=== PATIENT | male | born 1975 | race Caucasian/White ===

== ENCOUNTER 2019-01-03 07:00 | Inpatient (IN) ==
[2019-01-03] MEDS ORDERED: KEFZOL 2 GM/D5W 2 GM/50 ML IVPB ONE (13:46)
[2019-01-03] MEDS ORDERED: LR 1,000 ML ONE (13:46)
[2019-01-03] MEDS ORDERED: DIPRIVAN 1% ONE (14:39)
[2019-01-03] MEDS ORDERED: XYLOCAINE-MPF 2% ONE (14:40)
[2019-01-03] MEDS ORDERED: SUFENTA ONE (14:45)
[2019-01-03] MEDS ORDERED: QUELICIN (DOSE) ONE (14:49)
[2019-01-03] MEDS ORDERED: VERSED ONE (15:30)
[2019-01-03] MEDS ORDERED: PRECEDEX ONE (15:57)
[2019-01-03] MEDS ORDERED: DECADRON ONE (16:38)
[2019-01-03] MEDS ORDERED: ZOFRAN ONE (16:38)
[2019-01-03] MEDS ORDERED: ZOFRAN IV PRN (17:08)
[2019-01-03] MEDS ORDERED: MORPHINE IV PRN (17:08)
[2019-01-03] MEDS ORDERED: SENOKOT PO PRN (17:08)
[2019-01-03] MEDS ORDERED: INSULIN ASPART 14 UNIT SQ PRN (19:53)
[2019-01-03] MEDS: GLUCOTROL XL PO SCH (21:07)
--- NOTE | 2019-01-03 21:33 | OPERATIVE NOTE ---
PROCEDURE DATE: 01/03/2019 PREOPERATIVE DIAGNOSIS: 1. Left grade 2 metatarsal osteomyelitis (chronic). 2. Left necrotic great toe. POSTOPERATIVE DIAGNOSES: 1. Left grade 2 metatarsal osteomyelitis (chronic). 2. Left necrotic great toe. PROCEDURES: 1. Left first ray amputation through the metatarsal. 2. Left application of wound VAC. SURGEON: Dr. Nuno Lux. ASSOCIATE PROGRAM MANAGER: LINDA Manning who was an integral part of the case helping with all aspects, helped increase our OR efficiency greatly. ANESTHESIA: General with LMA. TOURNIQUET TIME: Less than an hour. IMPLANTS: None. DRAINS / WOUND VAC: None. SPECIMENS: Great toe sent to pathology and cultures were sent. DISPOSITION: To PACU, hemodynamically stable. INDICATION FOR PROCEDURE: Mr. Horan is a 43-year-old male who been following in clinic for a while. It has been a while since I have seen him, though. He came in yesterday with a necrotic, sort of black colored great toe on the left side. I discussed with him about surgical intervention. He expressed understanding wished to proceed. DESCRIPTION OF PROCEDURE: Mr. Horan was identified in the preoperative holding area. The left foot was marked as correct surgical site. He was then wheeled to the operating room, placed supine on the operating table. All bony prominences well padded. He was induced under general anesthesia. LMA was placed. Left lower extremity was then prepped with Betadine solution, draped in normal sterile fashion. Surgical pause was performed. We identified the correct patient, correct side, and the correct procedure. Preop antibiotics were given. Esmarch was used as a tourniquet at the level of the calf. There was no exsanguination of the leg. I started with amputating the great toe through the MTP joint. We amputated it and then sent it to Pathology. I then made a longitudinal incision up the medial aspect of the metatarsal. A lot of metatarsal was already gone, but it came back proximally, took a sagittal saw and made a cut through that metatarsal, got back to good appearing bone I then curetted all the tissue around that area and I used a rongeur as well to get all the looking tissue out and we got back to nice healthy- appearing tissue. Infection looked like it did spread over the dorsal aspect of that 2nd toe. We tracked it through there and decompressed that whole area as well. After we had an extremely thorough debridement, and all the tissue actually looked really good, we then irrigated everything copiously with normal saline. I then closed a lot of the wound the deep layer with 2-0 Maxon, some of the superficial layer with 2-0 Maxon and then nylon on the skin. There was an area distally that was still open, packed a wound VAC sponge down in there and covered it and hooked it to 125 mmHg of suction. We had a good seal. Miguelangel wrap was then placed. He was then awoken from general anesthesia, moved to his own bed and taken to PACU in stable condition. PLAN: Postop he will be nonweightbearing with left lower extremity. He will be admitted. He will be on IV antibiotics as well. cc: Nuno Lux MD
[2019-01-04] MEDS: KEFZOL 1 GM/D5W 1 GM/50 ML IVPB IV SCH ×3 (00:35→16:27)
[2019-01-04] MEDS: LOVENOX SUBQ SCH (06:08)
--- NOTE | 2019-01-04 07:46 | PROGRESS NOTE ---
DATE: 01/04/2019 SUBJECTIVE DATA: Mr. Horan is lying comfortably in bed. He is not complaining of any pain this morning. OBJECTIVE DATA: Left lower extremity exam: His wound VAC is intact; it is secure to suction. There is no surrounding erythema. He does have some drainage to the wound VAC. Right lower extremity exam: That plantar wound does have some surrounding erythema, and it does have quite a bit of purulent drainage. The wound does probe to bone. This has been a chronic wound that he has had for quite some time. ASSESSMENT: Status post left first ray amputation with application of wound VAC. PLAN: We are to continue Mr. Horan on IV antibiotics over the weekend. We are going to continue the wound VAC over the weekend. Have consult with Karoline, the wound care nurse. We are going to take down the wound VAC Monday and re-dress everything. His cultures have not come back yet. So, hopefully by Monday those cultures will be back, and we can decide on correct antibiotic coverage. If it can be done oral, we are okay with doing that. However, most likely Mr. Horan is going to need several weeks of IV antibiotic therapy. This will depend on the results of the cultures. Dictated by DIVINA Figueroa for Nuno Lux MD cc: DIVINA Figueroa MD
[2019-01-04] MEDS: LANTUS INSULIN SUBQ SCH (09:13)
[2019-01-04] MEDS: PRINIVIL PO SCH (09:16)
[2019-01-04] MEDS: GLUCOTROL XL PO SCH ×2 (09:16→20:14)
[2019-01-04] MEDS: MAXIPIME 2 GM in NS 100 ML IV SCH ×2 (09:54→20:14)
[2019-01-04] MEDS: ZYVOX PO SCH ×2 (09:54→20:14)
--- NOTE | 2019-01-04 10:32 | INFECTIOUS DISEASE CONSULT REP ---
DATE: 01/04/2019 CONCLUSION: Patient is status post ray amputation of a gangrenous left great toe with osteomyelitis. The patient also has on the right foot a plantar ulcer which probes to bone. Therefore, there is osteomyelitis in the right foot as well. RECOMMENDATIONS: I have ordered a CBC and BMP. Pending those results, I have put the patient on a combination of Zyvox and cefepime. DISCUSSION: The patient had sudden onset over the past 2 days of erythema and swelling of his left great toe. He underwent surgery yesterday with re-amputation of the left great toe. The patient also in the past year and a half has had a right foot plantar ulcer which, according to Dr. Lux's PA, probes to bone. When I took a culture from the ulcer, it did also appear to me that the probe was going to bone. Therefore, the right foot has osteomyelitis. LABORATORY STUDIES: Unfortunately there are none presently, except for the culture from the left toe, which is pending. PAST MEDICAL HISTORY/REVIEW OF SYSTEMS: Eyes and ears: He denies trouble hearing or seeing. Neck: No stiffness. Respiratory: No cough or shortness of breath. Cardiac: No chest pain or palpitations. GI: No nausea, vomiting or diarrhea. Genitourinary: No dysuria or flank pain. Bones/joints/muscles: See present illness. Neurologic: The patient does not have seizures. He has diminished peripheral sensation in both feet. Integument: No rashes PREVIOUS HOSPITALIZATIONS AND OPERATIONS: Patient has had multiple admissions for debridement of bilateral plantar foot ulcers. MEDICAL DISEASES: Positive for diabetes mellitus and hypertension. INFECTIOUS DISEASE HISTORY: Positive for infected feet. Negative for pneumonia and UTI. FAMILY HISTORY: Positive for diabetes mellitus, hypertension and myocardial infarction. [place]IAL HISTORY[place] . The patient currently has been receiving Ancef, and in the past has had oral Keflex, and tolerated them both well. The patient does smoke cigarettes, but he does not drink alcoholic beverages or abuse drugs. He is disabled. ALLERGIES: He has an allergy to penicillin caused by a rash. The patient's drug allergies consist of aspirin, metformin Actos and penicillins. All of these were manifested by anaphylaxis. He also is allergic to Pulmicort manifested by hives. PHYSICAL EXAMINATION: Vital Signs: Temperature is 97.9 degrees, pulse 69, respirations 19, blood pressure 112/62. General: This is a somewhat ill-appearing, obese, young male. He is in no acute distress. Head/eyes/ears/nose/throat: He can hear my spoken words and see near objects. Does not have any white coating on his tongue. Neck: It does not hurt him when he moves his neck. Lungs: Clear to auscultation. Cardiovascular: Heart rate is regular. Abdomen: Soft and nontender. Neurologic: Patient is alert. He has decreased peripheral sensation in his feet. There is no tremor. Integument: No rash. Bones/joint/muscles: I removed the dressing from the right foot. There is a plantar ulcer which I obtained a culture, and it appeared that the ariel that I got the infection with went down to bone. The patient's left foot had a large dressing around it. The dressing is intact. Thank you for the consult. cc: MD Nuno Reyna MD
[2019-01-04] MEDS: OXY IR PO PRN (13:22)
[2019-01-04] MEDS ORDERED: BENADRYL PO PRN (14:41)
[2019-01-04 17:58] LABS: BASO# 0.08 X1000 (0.0-0.2); EOS# 0.28 X1000 (0.0-0.7); EOS% 3.3 % (0.0-10.0); HEMATOCRIT 44.5 % (42.0-52.0); HEMOGLOBIN 14.7 g/dL (14.0-18.0); IMM GRAN# 0.04 X1000 (0.0-0.04); IMM GRAN% 0.5 % (0.0-0.5); LYMPH# 2.64 X1000 (1.2-3.4); LYMPH% 31.6 % (20.5-51.1); MCH 28.2 PG (27-31); MCV 85.2 FL (81-99); MONO% 7.2 % (1.7-9.3); MPV 10.2 FL (7.4-10.4); NEUT# 4.72 X1000 (1.4-6.5); NEUT% 56.4 % (42.2-75.2); PLT 339 X1000 (130-400); RBC 5.22 XMIL (4.7-6.1); RDW 13.8 % (11.5-14.5); WBC 8.36 X1000 (4.8-10.8)
[2019-01-04 18:06] LABS: AGAP 7; BUN 18 mg/dL (8-22); CALCIUM 8.4 mg/dL (8.8-10.2); CHLORIDE 93 mmol/L (98-107); COSMO 273; CREATININE 0.9 mg/dL (0.7-1.2); ESTIMATED GFR > 60; GLUCOSE 209 mg/dL (70-104); POTASSIUM 3.9 mmol/L (3.5-5.1); SODIUM 132 mmol/L (136-145); TCO2 32 mmol/L (25-35)
[2019-01-05] MEDS: LOVENOX SUBQ SCH (05:13)
[2019-01-05] MEDS: GLUCOTROL XL PO SCH ×2 (09:08→20:34)
[2019-01-05] MEDS: ZYVOX PO SCH ×2 (09:08→20:34)
[2019-01-05] MEDS: MAXIPIME 2 GM in NS 100 ML IV SCH ×2 (09:08→20:34)
[2019-01-05] MEDS: PRINIVIL PO SCH (09:08)
[2019-01-05] MEDS: PERIDEX MT SCH ×2 (09:08→20:34)
[2019-01-05] MEDS: LANTUS INSULIN SUBQ SCH (09:20)
--- NOTE | 2019-01-05 11:33 | ORTHOPAEDICS PROGRESS NOTE ---
DATE: 01/05/2019 SUBJECTIVE: The patient is a pleasant 43-year-old male who is 2 days status post left 1st ray amputation through the metatarsal and application of wound VAC per Dr. Lux. He is currently resting comfortably. OBJECTIVE: On physical exam, patient's left lower extremity wound VAC is intact and is maintaining suction. His dressing is intact. His calf is soft. IMPRESSION: Status post left 1st ray amputation application of wound VAC. PLAN: At this point, the patient will continue with IV antibiotics per Dr. Flower. The plan is to take down the wound VAC and redress the wound on Monday. cc: MD Nuno Shaw MD
[2019-01-05] MEDS: OXY IR PO PRN (13:13)
[2019-01-06] MEDS: LOVENOX SUBQ SCH (05:09)
--- NOTE | 2019-01-06 08:04 | ORTHOPAEDICS PROGRESS NOTE ---
DATE: 01/06/2019 SUBJECTIVE: The patient is a pleasant, 43-year-old male who is 3 days status post left first ray amputation through the metatarsal with application of wound VAC per Dr. Lux. Patient is currently resting comfortably. He has no complaints. PHYSICAL EXAMINATION: He is afebrile. Left lower extremity, his wound VAC is in place. His dressing is intact as well. IMPRESSION: Status post left first ray amputation and application of wound VAC. PLAN: At this point, the patient will continue his IV antibiotics. The plan is to change his dressing and wound VAC tomorrow, and for repeat wound check. cc: MD Nuno Shaw MD
[2019-01-06] MEDS: ZYVOX PO SCH ×2 (09:30→21:02)
[2019-01-06] MEDS: PRINIVIL PO SCH (09:30)
[2019-01-06] MEDS: LANTUS INSULIN SUBQ SCH (09:30)
[2019-01-06] MEDS: PERIDEX MT SCH ×2 (09:31→21:03)
[2019-01-06] MEDS: GLUCOTROL XL PO SCH ×2 (09:31→21:02)
[2019-01-06] MEDS: MAXIPIME 2 GM in NS 100 ML IV SCH ×2 (09:31→21:03)
--- NOTE | 2019-01-06 14:36 | INFECTIOUS DISEASE PROGRESS NO ---
DATE: 01/06/2019 PRESENT ILLNESS: The patient is status post amputation of a gangrenous left great toe with osteomyelitis. A culture from the toe is growing methicillin-resistant Staph aureus. The patient on his right foot has a plantar ulcer which probes to bone. Therefore, by definition the patient has osteomyelitis of the right foot as well. MEDICATIONS: The patient is on a combination of cefepime and Zyvox. PHYSICAL EXAMINATION: Vital Signs: Temperature is 98.7 degrees, pulse 81, respirations 20, blood pressure 123/62. General: This is an obese, young male who is in no acute distress. Head/eyes/ears/nose/throat: He can hear my spoken words and see near objects. He does not have any white patches on his tongue. Neck: There is no pain when he moves his neck. Lungs: Clear to auscultation. Cardiovascular: Regular heart rate. Abdomen: Soft and nontender. Extremities: The patient's left foot has a VAC on it. The patient's right foot has a dressing on it. I removed the dressing and there is a plantar ulcer. I took another culture from the area and it did appear to go to the bone. Neurologic: Patient is alert. He can move his extremities. There is no tremor. LAB AND X-RAY STUDIES: No new radiographic study. CBC shows a white count of 8360, hemoglobin is 14.7 and platelet count is 339,000. Creatinine is 0.9. GFR is greater than 60. A culture taken from the patient's left foot which is the foot that had the left great toe amputated is growing methicillin-resistant Staph aureus. ASSESSMENT AND PLAN: The patient already is on Zyvox which should have good activity against methicillin-resistant Staph aureus. I have taken another culture from the patient's right foot. The 1st one I took I think I mislabeled as saying it was the left foot but in fact, I think it was actually the right foot, but in the computer it is entered as coming from the left foot so I thought it would be best to take a culture from the right foot and label it as such. I am going to discontinue cefepime pending the culture from the right foot. I have ordered an x-ray of the right foot also. COMORBIDITIES: He is a diabetic and he is morbidly obese. cc: MD Nuno eRyna MD
--- NOTE | 2019-01-06 15:06 | Diag Imaging Result Doc PS360 ---
EXAM: FOOT 2 VIEWS RIGHT HISTORY: osteomyelitis TECHNIQUE: Right foot, two views COMPARISON: 01/19/2018 FINDINGS: Worsening erosions to the mid and distal first metatarsal and proximal phalanx of the great toe. There are also now erosions with a pathologic fracture involving the distal second metatarsal. Long-standing deformity at the third and fourth metatarsal phalangeal joints. Soft tissue ulcer beneath the distal first and second metatarsals. IMPRESSION: Osteomyelitis involving the first and second metatarsals and proximal great toe. Electronically signed by Jurgen Valenzuela 01/06/2019 3:04 PM
[2019-01-06] MEDS: OXY IR PO PRN (21:03)
[2019-01-07] MEDS: LOVENOX SUBQ SCH (06:00)
[2019-01-07 07:43] VITALS: BP 110/60
--- NOTE | 2019-01-07 08:19 | ORTHOPAEDICS PROGRESS NOTE ---
DATE: 01/07/2019 SUBJECTIVE: Mr. Horan is lying in bed this morning. Overall feeling okay. Not really complaining of any pain. OBJECTIVE: On left lower extremity exam, his dressing is clean, dry, and intact. Wound VAC is intact and to 125 mm suction. There is not much drainage in the canister at all. ASSESSMENT: Status post left first ray amputation. PLAN: Mr. Horan is growing out MRSA, and Dr. Flower has recommended Zyvox for him. I will talk with Dr. Flower a little bit later this morning, and will discuss about getting IV access set up for Mr. Horan. We are also going to change his wound VAC today with Karoline, our wound nurse, and will get everything set up for wound VAC dressing changes if need be. He is desiring to be discharged as soon as possible, so will try to get everything done today and get everything set up for outpatient. cc: Nuno Lux MD
--- NOTE | 2019-01-07 09:57 | INFECTIOUS DISEASE PROGRESS NO ---
DATE: 01/07/2019 PRESENT ILLNESS: The patient is status post ray amputation of the gangrenous left great toe with methicillin-resistant Staph aureus osteomyelitis. The patient on the right foot has a plantar ulcer which probes to bone and, therefore, the right foot has osteomyelitis as well. The type of osteomyelitis is chronic because the patient has had that ulcer for a long time and has refused any type of surgery on his right foot, which would be necessary to clear the infection. MEDICATIONS: The patient is on a combination of cefepime and Zyvox. PHYSICAL EXAMINATION: Vital Signs: Temperature is 98.3 degrees, pulse 71, respirations 18, blood pressure 110/60. General: This is an obese, young male. He is in no acute distress. HEENT: He can hear my spoken words and see near objects. He does not have any white coating on his tongue. There is no drainage from the ears or nose. Lungs: Clear to auscultation. Cardiovascular: Heart rate is regular. Abdomen: Soft and nontender. Extremities: The patient's left foot has a VAC in place. The foot itself is not erythematous. The patient's right foot has a plantar ulcer which extends to bone. The right foot is swollen also. Neurologic: Patient is alert. He can move his arms and legs. There is no tremor. LAB AND X-RAY: There are no new laboratory studies other than a glucose of 160. There is no new radiographic study on either foot. Patient's culture from the left foot grew methicillin-resistant Staph aureus and it also grew Staph epidermidis. As regarding the patient's left foot osteomyelitis, this was removed at surgery by ray amputation. PLAN: My plan is to treat the patient with doxycycline for 2 weeks in case there is any residual infection in the left foot. I have taken a culture from the right foot and we will see what is growing. The patient is to come back to my office in 2 weeks. At that time we will see how his left foot is doing and also if he wants to proceed with surgery on his right foot. I discussed with the patient and told him that he does have bone infection in the right foot, which we call osteomyelitis, and because he has had it for 3 years that would be chronic osteomyelitis. I further told him that to clear the infection in that foot, he would need to have surgery done by Dr. Lux to remove as best he could the infected bone or bones. The patient in the past has refused to have any surgery on that right foot. I am sending him home on doxycycline, as mentioned above, and when he comes back in he said he may change his mind and he will think about having surgery on the right foot. I told him that giving him IV antibiotics for a period of 6 weeks, I did not think would cure the right foot because he has a chronic osteomyelitis in that foot and to clear that he would need both surgery to remove the involved bone or bones as much as possible and combine that with IV antibiotics. The patient's comorbidities include diabetes mellitus and morbid obesity. cc: MD Nuno Reyna MD
--- NOTE | 2019-01-07 14:14 | DISCHARGE SUMMARY ---
ADMISSION DATE: 01/03/2019 DISCHARGE DATE: 01/07/2019 REASON FOR ADMISSION: 1. Left metatarsal chronic osteomyelitis. 2. Left necrotic great toe. 3. Uncontrolled diabetes mellitus with peripheral neuropathy. DISCHARGE DIAGNOSES: 1. Left metatarsal chronic osteomyelitis. 2. Left necrotic great toe. 3. Uncontrolled diabetes mellitus with peripheral neuropathy. PROCEDURES: On 01/03/2019, Dr. Lux performed a left first ray amputation through the metatarsal with application of wound VAC. HOSPITAL COURSE: Mr. Horan is a 43-year-old male who Dr. Lux has been following in clinic for almost 3 years. Unfortunately, it had been quite a while since Mr. Horan had been in to see us however. He has had chronic osteo of the metatarsals bilaterally. He came in and saw Dr. Lux in the office with a necrotic left great toe. At that time, it was discussed about surgical intervention. Dr. Lux had discussed with him previous transmetatarsal amputations before, and the patient has not wanted to do that. However, at that time he was ready for an amputation of the left great toe. He was taken to the operating room where satisfactory anesthesia was obtained. He tolerated the procedure well and was transferred to the recovery room. After satisfactory recovery, he was transferred to [address] [place] [address]. The cultures were taken at the time of surgery, and Dr. Flower was consulted. Dr. Flower started him on Zyvox intravenously. Cultures grew back which showed Staphylococcus aureus and Staphylococcus epidermidis. The patient has since been transitioned to doxycycline to take orally at home. His current laboratory data shows his white count is 8.36, hemoglobin and hematocrit 14.7, 44.5, and platelet count 339,000. His BUN and creatinine is 18 and 0.9. Discharge vital signs show temperature is 98.3 degrees, pulse 71, respirations 18, and blood pressure 110/60. He is 95% on room air. Mr. Horan states he is ready for discharge home. There was a wound VAC applied at the time of surgery. That was changed this morning. There were some chronic discoloration to the foot, but there was no surrounding erythema. He will continue to need the wound VAC. Karoline the wound care nurse has been into see him, and reapplied his wound VAC. DISCHARGE MEDICATIONS: 1. Glipizide 5 mg p.o. b.i.d. 2. NovoLog 14 units subcu as needed. 3. Insulin 60 units subcu daily. 4. Prinivil 5 mg p.o. daily. 5. Doxycycline 100 mg every 12 hours x15 days for now. FOLLOW UP: He will follow up with Dr. Flower as an outpatient. DISCHARGE DISPOSITION: Mr. Horan is going to be discharged home with home health. They will be responsible for changing his wound VAC. We are going to continue wound VAC at home. We will have him follow up with Dr. Lux in 1 week. We have discussed further worsening of symptoms. We have also discussed the continued need for a transmetatarsal amputation. Mr. Horan still wants to avoid that as long as possible. We are also treating his right side. There is a large open wound on this side, and the MRI does show chronic osteomyelitis changes to that foot as well. We will continue to watch both of these. We will just do local wound care on that right side. He is also going to follow up with Dr. Flower. He will continue the doxycycline likely for 6 to 8 weeks. We will have him call with any changes. Dictated by DIVINA Figueroa for Nuno Lux MD cc: DIVINA Figueroa MD
== END 2019-01-07 10:23 | disposition home or self-care (01) | DRG 240 ==
LOC: EDSTATUS 07:00 → SURHOLD 13:07 → 4N 17:45
PROVIDERS: ADMIT Orthopaedic Surgery; ATTEND Orthopaedic Surgery
CPT/HCPCS: 73620; 80048; 82948; 85025; 87070; 87075; 87077; 87186; 87205; 88305; 94761; 94799; 97116; 97162; 97530; A9270; J0330; J0690; J0692; J1100; J1650; J1815; J2250; J2270; J2405; J7120; XXXXX

== ENCOUNTER 2019-02-16 10:53 | Inpatient (IN) ==
[2019-02-16] MEDS ORDERED: CLINDAMYCIN 600 MG/NS 600 MG/50 ML IVPB IV ONE (11:14)
[2019-02-16] MEDS ORDERED: ZOFRAN IV ONE (11:20)
[2019-02-16] MEDS ORDERED: MORPHINE IV ONE (11:20)
--- NOTE | 2019-02-16 11:48 | Diag Imaging Result Doc PS360 ---
EXAM: FOOT COMPLETE RIGHT INDICATION: right foot cellulitis, foot ulcer TECHNIQUE: 3 views COMPARISON: 01/06/2019 FINDINGS: There is a stable ulceration at the plantar aspect of the forefoot. There is extensive soft tissue edema at the dorsum of the foot that has worsened during the interval and there has been development of subcutaneous gas at the dorsum of foot since the previous study indicating worsening cellulitis. There is extensive bony erosion involving the first and second metatarsals with pathologic fracture that was also seen on the previous study. There is adjacent new bone formation around the first and second metatarsal that has increased during the interval, which suggests subacute osteomyelitis. There are stable long-standing deformities involving the third and fourth metatarsophalangeal joints. IMPRESSION: 1.Worsening cellulitis with development of soft tissue gas at the dorsum of the foot. 2.Extensive erosion involving the first and second metatarsal with periosteal new bone formation that is increasing during the interval indicating subacute osteomyelitis. Electronically signed by David Lerma 02/16/2019 11:46 AM
[2019-02-16 11:59] LABS: BASO# 0.04 X1000 (0.0-0.2); BASO% 0.3 % (0.0-0.8); EOS# 0.06 X1000 (0.0-0.7); EOS% 0.4 % (0.0-10.0); HEMATOCRIT 47.1 % (42.0-52.0); HEMOGLOBIN 16.1 g/dL (14.0-18.0); IMM GRAN# 0.05 X1000 (0.0-0.04); IMM GRAN% 0.4 % (0.0-0.5); LYMPH# 1.36 X1000 (1.2-3.4); LYMPH% 9.6 % (20.5-51.1); MCH 29.4 PG (27-31); MCHC 34.2 g/dL (33-37); MCV 85.9 FL (81-99); MONO# 1.14 X1000 (0.11-0.59); MPV 11.8 FL (7.4-10.4); NEUT# 11.52 X1000 (1.4-6.5); NEUT% 81.3 % (42.2-75.2); PLT 193 X1000 (130-400); RBC 5.48 XMIL (4.7-6.1); RDW 15.5 % (11.5-14.5); WBC 14.17 X1000 (4.8-10.8)
[2019-02-16 12:25] LABS: AGAP 12; ALB/GLOB RATIO 0.7; ALBUMIN 3.5 g/dL (3.5-5.0); ALKALINE PHOSPHATASE 142 U/L (32-122); BUN 11 mg/dL (8-22); CALCIUM 9.6 mg/dL (8.8-10.2); CHLORIDE 91 mmol/L (98-107); COSMO 272; ESTIMATED GFR > 60; GLUCOSE 371 mg/dL (70-104); GOT 18 U/L (10-34); GPT 10 U/L (10-44); POTASSIUM 5.1 mmol/L (3.5-5.1); SODIUM 128 mmol/L (136-145); TCO2 25 mmol/L (25-35); TOTAL BILIRUBIN 0.74 mg/dL (0.20-1.00); TOTAL PROTEIN 8.3 g/dL (6.3-8.3)
[2019-02-16] MEDS ORDERED: NS 500 ML IV ONE (12:37)
--- NOTE | 2019-02-16 12:45 | PROVIDER DOCUMENTATION ---
This chart was entered by Roxanne Cuevas Scribe, acting as scribe for Darrius Cooley CRNP. HPI-Musculoskeletal Pain/Inj - GENERAL Chief Complaint: Extremity Pain Stated Complaint: RT FOOT SWOLLEN,DIABETIC Time Seen by Provider: 02/16/19 10:58 Source: patient - HX OF PRESENT ILLNESS-MUSKULOSKELTAL Nature of Presenting Problem: Patient is a 43 y/o male with history of diabetes presents to the ED with foot ulcers and increased swelling to the right second through fourth toes, most notably the fourth toe which also has an ulcer on the plantar surface where the states a blister ruptured last night. Hx of osteomyelitis and diabetic ulcer to right foot "for several years", pt states swelling increased last night and reports a subjective fever last night as well. Reports recent left foot amputation performed by Dr Lux. He states he has been seen by Dr. Elmer Flower with infectious disease for the ulcer on his right foot and completed a course of abx 1-2 months ago. He denies any other symptoms and is non-toxic in appearance. Quality of Pain: reports: none, other (chronic neuropathy) Onset/Duration: gradual Timing: still present Any recent injury?: No Locality of Occurance: Home Similar Symptoms Previously?: Yes Recently seen or treated by another doctor?: Yes - LOWER EXTREMITY PAIN/INJURY Lower Extremities Pain: 4th toe: right Context / Method of Injury: reports: other (foot ulcer) Review of Systems - Adult - REVIEW OF SYSTEMS - ADULT Constitutional: reports: fever. denies: weight gain, weight loss Eyes: reports: no symptoms reported Ears, Nose, Mouth & Throat: reports: no symptoms reported Cardiovascular: reports: no symptoms reported Respiratory: reports: no symptoms reported Gastrointestinal: denies: diarrhea, nausea, vomiting Genitourinary: reports: no symptoms reported Musculoskeletal: reports: other (right fourth toe swelling and discoloration). denies: back pain, muscle weakness Integumentary: reports: no symptoms reported Neurological: reports: no symptoms reported Psychiatric: reports: no symptoms reported Endocrine: reports: no symptoms reported Hematologic/Lymphatic: reports: no symptoms reported Allergic/Immunologic: reports: no symptoms reported All Other Systems: Reviewed and Negative Past History - Adult - PAST MEDICAL HISTORY-ADULT Review of Records: reports: Old Records Reviewed, Nursing Assessment Review, Medications Reviewed Major Childhood Illnesses: reports: denies history Respiratory: reports: asthma Endocrine/Immune: reports: Diabetes Other Conditions: reports: MRSA (Left foot) - PRIOR SURGERIES/PROCEDURES Surgical/Procedure History: reports: other - PRIOR HOSPITALIZATIONS Prior Hospitalizations: reports: none - IMMUNIZATION STATUS Childhood Immunizations: See Nurse Assessment Flu Vaccine: See Nurse Assessment - FAMILY HISTORY Family History: reviewed, not pertinent - SOCIAL HISTORY Smoking: cigarettes Provider spent 3-5 mins advising pt. on dangers of tobacco.: Discussed manners to quit use, and f/u contacts for add'l counseling. Substance Use: alcohol Living Situation: family Physical Exam-Injury Related - Physical Exam-Injury Related Initial Vital Signs Reviewed: Yes General Appearance: alert, no apparent distress, obese. negative: lethargic, slow to respond Eyes: pink conjunctivae Head, Ears, Nose, Mouth & Throat: normocephalic/atraumatic, moist mucous membranes Neck: full range of motion, supple, normal inspection Respiratory: chest non-tender, lungs clear, normal breath sounds, no pleuratic chest pain, no respiratory distress, no accessory muscle use. negative: rales, rhonchi, wheezing Cardiovascular: normal peripheral pulses, regular rate, rhythm, no gallop, no murmur Peripheral Pulses: dorsalis-pedis (R): 3+ Abdominal Exam: normal bowel sounds, non tender, soft Extremity: erythema (right foot, particularly the right fourth toe), swelling (right toes). negative: pulse deficit Integumentary: warm/dry, other (erythema right foot more in the right fourth toe). negative: diaphoresis, jaundice, mottled, pallor Neurologic: grossly normal Psych/Mental Status: normal mood/affect, normal thought content, normal thought process, oriented x 3 - [place] Coma Score Best Eye Response ([place]): (4) open spontaneously Best Verbal Response ([place]): (5) oriented Best Motor Response ([place]): (6) obeys commands Progress - PLAN OF CARE/RESULTS Progress/Plan/Lab Results: Vital Signs - 8 hr 02/16/19 11:00 Temperature 97.9 F Pulse Rate 112 H Respiratory Rate 20 Blood Pressure 164/72 O2 Sat by Pulse Oximetry 96 Laboratory Results - last 24 hr 02/16/19 02/16/19 02/16/19 11:35 11:35 11:35 WBC 14.17 H RBC 5.48 Hgb 16.1 Hct 47.1 MCV 85.9 MCH 29.4 MCHC 34.2 RDW Std Deviation 15.5 H Plt Count 193 MPV 11.8 H Immature Gran % (Auto) 0.4 Neut % (Auto) 81.3 H Lymph % (Auto) 9.6 L [place] % (Auto) 8.0 Eos % (Auto) 0.4 Baso % (Auto) 0.3 Immature Gran # (Auto) 0.05 H Neut # (Auto) 11.52 H Lymph # (Auto) 1.36 [place] # (Auto) 1.14 H Eos # (Auto) 0.06 Baso # (Auto) 0.04 Sodium 128 L Potassium 5.1 Chloride 91 L Carbon Dioxide 25 Anion Gap 12 BUN 11 Creatinine 1.0 Estimated GFR/1.73 m2 > 60 BUN/Creatinine Ratio 11 Glucose 371 H Calculated Osmolality 272 Calcium 9.6 Total Bilirubin 0.74 AST 18 ALT 10 Alkaline Phosphatase 142 H Total Protein 8.3 Albumin 3.5 Globulin 4.8 Albumin/Globulin Ratio 0.7 Plasma Lactate 1.6 Orders Category Date Time Status FOOT COMPLETE RIGHT [RAD] Stat Exams 02/16/19 11:14 Completed BLOOD CULTURE [BLDCUL] Stat Lab 02/16/19 11:40 Received CBC WITH DIFF [HEME] Stat Lab 02/16/19 11:35 Completed COMPREHENSIVE METABOLIC PANEL [CHEM] Stat Lab 02/16/19 11:35 Completed LACTATE, PLASMA [CHEM] Stat Lab 02/16/19 11:35 Completed WOUND CULTURE INC GRAM STAIN [RM] Routine Lab 02/16/19 12:40 Ordered 0.9% Sodium Chloride Inj [Ns] 500 ml Med 02/16/19 12:37 Active IV 999 mls/hr Clindamycin 600 mg/Ns Med 02/16/19 11:14 Discontinued 600 mg in 50 ml IV NOW Morphine Med 02/16/19 11:20 Discontinued 4 mg IV NOW ONE Ondansetron [Zofran] Med 02/16/19 11:20 Discontinued 4 mg IV NOW ONE 1223- Admitting HPS paged. Pt in agreement with admission plan. Result Diagrams: 02/16/19 11:35 02/16/19 11:35 - XRAY 1 XRAY: Right XRAY Study: Foot Impression: Abnormal (EXAM: FOOT COMPLETE RIGHT INDICATION: right foot cellulitis, foot ulcer TECHNIQUE: 3 views COMPARISON: 01/06/2019 FINDINGS: There is a stable ulceration at the plantar aspect of the forefoot. There is extensive soft tissue edema at the dorsum of the foot that has worsened during the interval and there has been development of subcutaneous gas at the dorsum of foot since the previous study indicating worsening cellulitis. There is extensive bony erosion involving the first and second metatarsals with pathologic fracture that was also seen on the previous study. There is adjacent new bone formation around the first and second metatarsal that has increased during the interval, which suggests subacute osteomyelitis. There are stable long-standing deformities involving the third and fourth metatarsophalangeal joints. IMPRESSION: 1.Worsening cellulitis with development of soft tissue gas at the dorsum of the foot. 2.Extensive erosion involving the first and second metatarsal with periosteal new bone formation that is increasing during the interval indicating subacute osteomyelitis. Electronically signed by David Lerma 02/16/2019 11:46 AM) - CONSULTS/PCP/HOSPITALIST Notification #1 *Consult/PCP/Hospitalist*: SUSAN Devi [employer]ISSIONING ENGINEER Time Discussed: 12:44 Reason/Comments: admission- osteomyelitis/cellulitis, right foot Consult Disposition: Will see in ED, Admit (to Dr. Jensen) Departure - Departure Date of Disposition Decision: 02/16/19 Time of Disposition Decision: 12:45 DIAGNOSIS: Hyponatremia Cellulitis Qualifiers: Site of cellulitis: extremity Site of cellulitis of extremity: lower extremity Laterality: right Qualified Code(s): L03.115 - Cellulitis of right lower limb Osteomyelitis Qualifiers: Osteomyelitis type: unspecified type Osteomyelitis location: foot Laterality: right Qualified Code(s): M86.9 - Osteomyelitis, unspecified Disposition: ADMITTED INPATIENT 09 Certified Medical Emergency: Emergent Condition: Stable Referrals and Follow-Ups: None,PCP [Primary Care Provider] - - Critical Care Note This patient required my direct & personal management of CC.: No Attestation - Physician/ EDITA Attestation Patient care was provided by Advanced Practice Provider:: Yes Advanced Practice Provider:: Darrius Cooley Advanced Practice Provider documentation review:: The Mid-level provider documentation, treatment plan and medical decision making was reviewed by the physician who agrees with all treatment and medical decision making by the MLP. The physician spent face to face time with patient:: No Advanced Practice Provider documentation review:: Supervising physician onsite and consulted in the evaluation and care of this patient. The physician did not have a face to face encounter with the patient. This chart was documented by the indicated scribe, (Roxanne Cuevas, Nilam) and accurately reflects the services I performed and decisions made by , Darrius Cooley CRNP, as attested by the provider's signature.
[2019-02-16] MEDS ORDERED: ZOFRAN IV PRN (12:56)
[2019-02-16] MEDS ORDERED: NS 1,000 ML IV SCH (13:00)
[2019-02-16 13:08] LABS: INR 1.09
[2019-02-16 13:09] LABS: PTT 34.5 Seconds (22.3-41.8)
--- NOTE | 2019-02-16 13:18 | Diag Imaging Result Doc PS360 ---
EXAM: CHEST-1 VIEW INDICATION: POSSIBLE SEPSIS TECHNIQUE: One view COMPARISON: 12/12/2014 FINDINGS: The lungs are grossly clear. There is no discrete pleural fluid collection or pneumothorax. The cardiomediastinal silhouette and central vasculature are grossly unremarkable. IMPRESSION: No evidence of acute pathology by plain radiograph. Electronically signed by David Lerma 02/16/2019 1:16 PM
[2019-02-16 14:01] LABS: HEMOGLOBIN A1C 8.5 % (4.8-6.0)
--- NOTE | 2019-02-16 14:16 | HISTORY AND PHYSICAL ---
HISTORY OF PRESENT ILLNESS: This is a 43-year-old white male who has a past medical history of diabetes mellitus type 2, peripheral neuropathy, and diabetic foot ulcers. The only surgery he has had is his left large toe was amputated and he has had foot ulcer debridement. Apparently he has been known he has had osteomyelitis of the right foot as well according to old records, but his right foot has been swelling and then he had a place open up and drain near his 5th toe. He has an open ulcer as well on the dorsum of his foot around the metatarsals midfoot. The whole foot is swollen. Does not have much feeling but still it is uncomfortable by his report. It apparently opened up and drained yesterday, did not want to come to the emergency room, came today. He is followed by Dr. Lux. He is followed by Dr. Flower in the past. His primary care physician is DIVINA Brandt. He does not report any fever or chills, or any other constitutional symptoms. His sugars, he is not sure what they have been, but they look like they have been running high. REVIEW OF SYSTEMS: General: No report of fever or chills. No weight gain or loss. HEENT: No change in visual or hearing acuity reported. No neck pain or cervical adenopathy. Respiratory: No upper airway congestion or pleuritic pain or shortness of breath, orthopnea, paroxysmal nocturnal dyspnea. No swelling that he has noted and unusual swelling in his lower extremities. Cardiovascular: No chest pain or tachy or tachy palpitations. Gastrointestinal/genitourinary: No gross hematuria or dysuria. No change in urinary or bowel habits. Endocrinologic/hematologic: No significant history other than diabetes. Musculoskeletal/Neurologic: No new focal complaints. PHYSICAL EXAMINATION: VITAL SIGNS: Temperature 97.9 degrees, pulse 112, respirations 20, blood pressure 164/72. HEENT: Pupils are equal and round. LUNGS: Clear in all lung ernst. CARDIOVASCULAR: Regular rhythm and rate without murmur or S3. ABDOMEN: Soft. SKIN: Warm and dry. GENERAL: Weight 285 pounds. EXTREMITIES: Right foot, entire foot with soft tissue swelling, open ulcer on the metatarsal of his foot and a draining ulcer near the 5th toe. There is mild discoloration of the left foot where he had a large toe amputation, seems to be healing well. LABORATORY DATA: White count 98638, hematocrit 47, platelet count 193,000. Sodium 128, potassium 5.1, chloride 91, BUN 11, creatinine 1.0, blood sugar 371, albumin 3.5. Protime is 15, INR 1.09, PTT is 34. IMAGING: Chest x-ray: No evidence of acute pathology by plain radiograph. Foot x-ray: Worsening cellulitis and development of soft tissue gas in the dorsum of the foot, extensive erosion involving the 1st and 2nd metatarsal, periosteal bone formation has increased during the interval indicating subacute osteomyelitis. ASSESSMENT AND PLAN: 1. Osteomyelitis infection of the foot. Suspect osteomyelitis and Dr. Lux has seen before. We will get Dr. Flower involved. He is allergic to penicillin so I will put him back on cefepime and Zyvox to cover for multi organism. We will try and elevate that foot. 2. Diabetes mellitus type 2. His blood sugars I think have been probably under poor control. His sugar was 371. We will check a hemoglobin A1c. We will put him on a sliding scale and check pattern sugars. Put him on a diabetic diet. He is on glipizide 5 mg b.i.d. and he is on Humalog which he takes 30 units at night. We will put him on the glipizide and I think we will put him on 10 mg b.i.d. glipizide and will put him on sliding scale. Probably will need to start some Lantus, but we will see how he does on this glipizide. 3. Hypertension. Continue lisinopril 5 mg a day. 4. Obesity. 5. Allergies. He is allergic aspirin, metformin, pioglitazone, penicillins, budesonide. Aware. cc: Caden Jensen MD
[2019-02-16 14:17] LABS: URINE SOURCE CLEAN CATCH
[2019-02-16 14:27] LABS: BILIRUBIN URINE NEGATIVE (NEGATIVE); BLOOD URINE MODERATE (NEGATIVE); COLOR YELLOW; GLUCOSE URINE >1000 mg/dL (NEGATIVE); KETONE URINE 40 mg/dL (NEGATIVE); LEUKOCYTES URINE NEGATIVE (NEGATIVE); NITRITE URINE NEGATIVE (NEGATIVE); PROTEIN URINE 70 mg/dL (NEGATIVE); SP GRAVITY URINE 1.024; TURBIDITY URINE CLEAR (CLEAR); UR EPITHELIAL CELLS <10 /HPF (<10); URINE BACTERIA NEGATIVE /HPF; URINE RBC <10 /HPF (<10); URINE WBC <10 /HPF (<10); UROBILINOGEN URINE NORMAL (NORMAL)
[2019-02-16] MEDS: ZYVOX 600 MG/D5W 600 MG/300 ML IVPB IV SCH (15:03)
[2019-02-16] MEDS: NS 1,000 ML IV SCH (15:03)
[2019-02-16] MEDS: LOVENOX SUBQ SCH (15:06)
[2019-02-16] MEDS: NORCO-7.5 PO PRN (15:06)
[2019-02-16] MEDS: ALBUTEROL NEB INH PRN ×2 (15:58→20:05)
[2019-02-16] MEDS: MAXIPIME 2 GM in NS 100 ML IV SCH (17:24)
[2019-02-16] MEDS: HUMULIN R SUBQ SCH ×2 (17:25→21:51)
[2019-02-16] MEDS ORDERED: INSULIN LISPRO 30 UNIT SQ SCH (21:00)
[2019-02-16] MEDS ORDERED: GLUCOTROL XL PO SCH (21:00)
[2019-02-16] MEDS: GLUCOTROL PO SCH (21:50)
[2019-02-16] MEDS: HUMULIN 70/30 SUBQ SCH (21:51)
[2019-02-17] MEDS: TYLENOL PO PRN ×2 (01:52→22:56)
[2019-02-17] MEDS: ZYVOX 600 MG/D5W 600 MG/300 ML IVPB IV SCH ×2 (01:53→12:47)
[2019-02-17] MEDS: NS 1,000 ML IV SCH ×2 (01:56→21:40)
[2019-02-17] MEDS: MAXIPIME 2 GM in NS 100 ML IV SCH ×2 (06:13→17:22)
[2019-02-17] MEDS: PRILOSEC PO SCH (06:13)
[2019-02-17 06:43] LABS: BASO# 0.02 X1000 (0.0-0.2); BASO% 0.2 % (0.0-0.8); EOS# 0.17 X1000 (0.0-0.7); EOS% 1.5 % (0.0-10.0); HEMATOCRIT 43.3 % (42.0-52.0); HEMOGLOBIN 14.7 g/dL (14.0-18.0); IMM GRAN# 0.02 X1000 (0.0-0.04); IMM GRAN% 0.2 % (0.0-0.5); LYMPH# 1.04 X1000 (1.2-3.4); MCH 29.7 PG (27-31); MCHC 33.9 g/dL (33-37); MCV 87.5 FL (81-99); MONO# 0.93 X1000 (0.11-0.59); MONO% 8.1 % (1.7-9.3); MPV 11.9 FL (7.4-10.4); NEUT# 9.37 X1000 (1.4-6.5); PLT 191 X1000 (130-400); RBC 4.95 XMIL (4.7-6.1); RDW 15.7 % (11.5-14.5); WBC 11.55 X1000 (4.8-10.8)
[2019-02-17 07:14] LABS: AGAP 12; ALB/GLOB RATIO 0.7; ALBUMIN 3.3 g/dL (3.5-5.0); ALKALINE PHOSPHATASE 142 U/L (32-122); BUN 10 mg/dL (8-22); CALCIUM 9.6 mg/dL (8.8-10.2); CHLORIDE 98 mmol/L (98-107); COSMO 276; ESTIMATED GFR > 60; GLUCOSE 157 mg/dL (70-104); GOT 9 U/L (10-34); GPT 7 U/L (10-44); MAGNESIUM 1.8 mg/dL (1.5-2.7); POTASSIUM 4.4 mmol/L (3.5-5.1); SODIUM 137 mmol/L (136-145); TCO2 27 mmol/L (25-35); TOTAL BILIRUBIN 0.51 mg/dL (0.20-1.00); TOTAL PROTEIN 8.2 g/dL (6.3-8.3)
[2019-02-17] MEDS: HUMULIN R SUBQ SCH ×4 (07:19→22:58)
--- NOTE | 2019-02-17 09:10 | ORTHOPAEDICS CONSULTATION ---
DATE: 02/17/2019 HISTORY OF PRESENT ILLNESS: Mr. Horan is a 43-year-old male who is well known to our service. We recently performed a left great toe amputation and he has actually doing pretty well from that side. Unfortunately, the right foot has begun to get worse and his fourth toe started changing color as well, and so he came in for evaluation. He was admitted to the hospital per Dr. Jensen who consulted me for his right foot. PAST MEDICAL HISTORY: Diabetes, peripheral neuropathy, history bilateral diabetic foot ulcers. PAST SURGICAL HISTORY: Left great toe amputation. ALLERGIES: Aspirin, metformin, pioglitazone, penicillin. MEDICATIONS: Per the medical record. SOCIAL HISTORY: He denies any smoking. REVIEW OF SYSTEMS: Positive for bilateral diabetic foot ulcers. PHYSICAL EXAMINATION: General: Well-developed male lying in bed. He is in no acute distress. Head and Neck: Normocephalic, atraumatic. Respirations: Nonlabored breathing. Cardiovascular: Regular pulse. Abdomen: Nondistended. Left Lower Extremity Examination: Left lower extremity exam is actually looking really good. There is only a very small area that is open there distally but there is not a lot of swelling to the foot. The incision where we did the grade toe amputation looks good. Right Lower Extremity Examination: He has a draining wound underneath the first MTP joint. It is swollen throughout the whole foot. The end of his fourth toe is turning very dark and black, and there is a foul odor coming from the foot overall. He does still have good capillary refill to all the toes except for the fourth toe. RADIOGRAPHS: Several views of the right foot show a lot of bony destruction of the first and second metatarsals. ASSESSMENT: 1. Right foot osteomyelitis. 2. Right foot diabetic foot ulcers. PLAN: I am going to order an MRI on Mr. Horan today for this morning. We may end up having to perform surgical intervention today for a fourth toe amputation and possible great toe amputation as well. The great toe amputation would be through the metatarsal, whereas the fourth toe more than likely would be through the MTP joint. Once we get the MRI back, I will review it and go over with Mr. Horan about surgery at that time. cc: Nuno Lux MD
[2019-02-17] MEDS: GLUCOTROL PO SCH ×3 (10:43→22:56)
[2019-02-17] MEDS: HUMULIN 70/30 SUBQ SCH ×2 (10:43→22:59)
[2019-02-17] MEDS: PRINIVIL PO SCH (10:55)
--- NOTE | 2019-02-17 12:50 | INFECTIOUS DISEASE PROGRESS NO ---
DATE: 02/17/2019 PRESENT ILLNESS: The patient has right foot gangrenous cellulitis and osteomyelitis. Gram- positive cocci are growing from the foot and since the patient previously has had methicillin- resistant Staphylococcus aureus as the cause of an infection in his other foot, I suspect that the same organism is causing the patient's infection in his right foot. RECOMMENDATIONS: I am going to discontinue Zyvox and cefepime, and instead start the patient on vancomycin. PHYSICAL EXAMINATION: Vital Signs: Temperature is 97.8 degrees, pulse 96, respirations 20, blood pressure 117/66. The patient weighs 273 pounds. General: This is an obese, young male. He is in no acute distress. Head, Eyes, Ears, Nose, and Throat: He can hear my spoken words and see near objects. He does not have any white coating on his tongue. He seems to have poor dental hygiene. Neck: No meningismus. Lungs: Clear to auscultation. Cardiovascular: Heart rate is regular. I was able to feel peripheral pulses in both feet. Abdomen: Soft and nontender. Bones, Joints, and Muscles: The left foot is not erythematous. It does not have an odor. There are no open wounds. The patient's right foot is swollen. It is erythematous and the fourth toe is gangrenous. There also is a foul odor coming from the foot. Neurologic: The patient is alert. He can move his extremities. There is no tremor. He has decreased sensation in his feet. LABORATORY AND X-RAY: X-ray shows osteomyelitis of the right foot. The patient's CBC shows a white count of 11,550, hemoglobin 14.7, and platelet count 191,000. Creatinine is 1.0. GFR is greater than 60. Alkaline phosphatase is 142. Urinalysis shows no white cells or bacteria. Blood cultures are pending. A culture from the patient's right foot is growing a gram-positive coccus as mentioned above. ASSESSMENT AND PLAN: As mentioned above, the patient has gangrenous cellulitis and osteomyelitis of the right foot. I have switched the patient from Zyvox and Zosyn to vancomycin. I plan on treating the patient for 8 weeks with vancomycin if there is some question as to whether all the osteomyelitis has been removed and the organism isolated from the patient's foot is MRSA. COMORBIDITIES: Diabetes mellitus and obesity. cc: Elmer Flower MD MTDD
--- NOTE | 2019-02-17 13:06 | PROGRESS NOTE ---
DATE: 02/17/2019 SUBJECTIVE: He had a pretty good night, is comfortable. OBJECTIVE: Vital Signs: He remains afebrile, temperature 98.8 degrees, pulse 96, respirations 20, blood pressure 117/66. HEENT: Pupils are equal and round. Neck: No distended neck veins. Lungs: Clear in all lung ernst. Cardiovascular: Regular rhythm and rate, without murmur or S3. Urine output was 875 mL. ASSESSMENT AND PLAN: 1. Several views of the right foot show a lot of bony destruction of the first and second metatarsals and right foot osteomyelitis. Dr. Lux is planning debridement. He may require amputation of the fifth toe, and may require amputation of the first toe. 2. Numerous diabetic ulcers. Left foot seems to be healing well. 3. Diabetes mellitus type 2. 4. Peripheral neuropathy. 5. Hypertension. REVIEW OF ORDERS: The patient is on Lovenox 40 mg subcutaneously every 24 hours, Glucotrol 10 mg b.i.d., Humulin insulin 12 units b.i.d., and he is on sliding scale, Prinivil 5 mg daily, cefepime 2 grams every 12 hours, normal saline he gets 75 mL an hour, Prilosec 40 mg a day, linezolid 600 mg IV every 12 hours. He got 1 dose of clindamycin when he came to the emergency room. cc: Caden Jensen MD
[2019-02-17] MEDS: ALBUTEROL NEB INH PRN (15:56)
[2019-02-17] MEDS: LOVENOX SUBQ SCH (16:22)
[2019-02-17] MEDS: NORCO-7.5 PO PRN (20:41)
[2019-02-18] MEDS: NS 1,000 ML IV SCH ×2 (01:30→14:05)
[2019-02-18] MEDS: ZYVOX 600 MG/D5W 600 MG/300 ML IVPB IV SCH ×2 (02:14→14:01)
[2019-02-18] MEDS: MAXIPIME 2 GM in NS 100 ML IV SCH (05:04)
[2019-02-18] MEDS: HUMULIN R SUBQ SCH ×4 (07:32→22:22)
[2019-02-18] MEDS: PRILOSEC PO SCH (07:32)
--- NOTE | 2019-02-18 07:57 | ORTHOPAEDICS PROGRESS NOTE ---
DATE: 02/18/2019 SUBJECTIVE: Mr. Horan is lying in bed this morning. Pain is well controlled. OBJECTIVE: Right lower extremity exam: He does have some drainage on his dressing this morning. He still has some erythema to the foot as well. ASSESSMENT: 1. Right foot osteomyelitis. 2. Diabetic foot ulcer, chronic. PLAN: We have got everything set up for an MRI this morning. Mr. Horan is n.p.o. today. Depending on MRI would depend on to what extent we have to do things from a surgical standpoint. Will more than likely plan on a right first ray amputation through the metatarsal, and then a fourth toe amputation through the MTP joint. Will make final call after the MRI. I have discussed with Mr. Horan about the plan, and he is okay with proceeding with everything. cc: Nuno Lux MD
[2019-02-18] MEDS: GLUCOTROL PO SCH ×2 (11:27→22:21)
[2019-02-18] MEDS: PRINIVIL PO SCH (11:30)
[2019-02-18] MEDS: HUMULIN 70/30 SUBQ SCH ×2 (11:30→22:22)
--- NOTE | 2019-02-18 12:38 | Diag Imaging Result Doc PS360 ---
MRI LOWER EXT JT W/O CON-RIGHT - 02/18/2019 INDICATION: right foot osteomyelitis TECHNIQUE: MRI right foot COMPARISON: X-rays from 02/16/2019 and 01/06/2019 FINDINGS: There is severe diffuse soft tissue swelling over the dorsal foot in the forefoot. There is a large penetrating ulcer at the plantar aspect, under the first-second metatarsal space. There is complete erosion of the head and distal third of the first metatarsal shaft. The second metatarsal demonstrates a displaced transverse fracture at the distal most shaft. There is new bone formation around the first and second metatarsal shafts. There is some irregularity at the heads of the third and fourth metatarsals but this is most likely degenerative. The fifth metatarsal is normal. There are some signal voids at the dorsal soft tissue indicating soft tissue gas. No drainable fluid collections. The ankle and hindfoot appear normal. The mid tarsal joints are preserved. The major tendons of the foot and ankle are preserved. IMPRESSION: 1. Severe osteomyelitis of the first tarsal with erosion of the distal third of the bone. 2. Persistent mildly displaced fracture transversely at the distal shaft of the second metatarsal. 3. Severe soft tissue swelling. Soft tissue gas over the forefoot. Penetrating ulcer at the plantar surface of the first-second metatarsal. 4. Degenerative appearing irregularities of the third and fourth metatarsal heads. Electronically signed by August Covarrubias 02/18/2019 12:35 PM
[2019-02-18] MEDS: NORCO-7.5 PO PRN (13:01)
[2019-02-18] MEDS: LOVENOX SUBQ SCH (14:13)
[2019-02-18] MEDS ORDERED: VANCOMYCIN IV PER PHARMACY MISC SCH (15:30)
[2019-02-18] MEDS: VANCOMYCIN 2 GM in NS 500 ML IV ONE ×3 (16:18→18:00)
[2019-02-18] MEDS ORDERED: XYLOCAINE-MPF 2% ONE ×2 (16:29→18:41)
[2019-02-18] MEDS ORDERED: DIPRIVAN 1% ONE (16:29)
--- NOTE | 2019-02-18 17:21 | PROGRESS NOTE ---
DATE: 02/18/2019 SUBJECTIVE: Mr. Horan feels about the same. They have not yet done the debridement. They are waiting on the MRI of his foot, but he is in good spirits. OBJECTIVE: Vital signs: Temperature 97.6 degrees, pulse 82, respirations 19, blood pressure 113/68. HEENT: Pupils are equal and round. Lungs: Clear in all lung ernst. Cardiovascular: Regular rhythm and rate without murmur or S3. Abdomen: Soft. Skin: Warm and dry. He has had good urine output by report. I do not know that we had a clear record of it. LABORATORY: His blood sugars look good. ASSESSMENT AND PLAN: 1. Left extremity MRI: Severe osteomyelitis of the first tarsal with erosion of the distal 3rd of the bone. Persistent mildly displaced fracture, transverse, of the distal shaft of the 2nd metatarsal. Severe soft tissue swelling, soft tissue gas over the forefoot, penetrating ulcer in the plantar surface of the 1st and 2nd metatarsal. Degenerative appearing irregularities of the 3rd and 4th metatarsal heads. I think the plan is for debridement, possible amputation for right foot osteomyelitis. 2. Diabetes mellitus type 2. Continue to follow sugars. They look like they are fairly well controlled. REVIEW OF HIS ORDERS: He is on glipizide 10 mg b.i.d., Prinivil 5 mg daily, and he is predominantly on vancomycin at this time 2 g loading dose. He is allergic to penicillin. cc: Caden Jensen MD
[2019-02-18] MEDS ORDERED: FENTANYL ONE (17:41)
[2019-02-18] MEDS ORDERED: MORPHINE ONE ×2 (18:03→18:26)
[2019-02-18] MEDS ORDERED: ZOFRAN ONE (18:03)
[2019-02-18] MEDS ORDERED: SODIUM CHLORIDE 0.9% 10 ML ONE (18:03)
[2019-02-18] MEDS ORDERED: ROBINUL ONE (18:03)
--- NOTE | 2019-02-18 18:57 | INFECTIOUS DISEASE PROGRESS NO ---
DATE: 02/18/2019 PRESENT ILLNESS: Mr. Horan is being treated for a right foot gangrenous cellulitis and osteomyelitis. There is a Staphylococcus simulans growing to that foot. He is awaiting transfer to surgery this afternoon for surgery on that foot. MEDICATIONS: He has been receiving cefepime and Zyvox which we will change today. PHYSICAL EXAMINATION: Vital signs: Temperature is 97.6 degrees, pulse rate 82, respiratory rate 19, blood pressure 113/68, O2 saturation 100% on room air. General: This is an obese, chronically ill-appearing gentleman. He is lying in bed, currently in no acute distress. HEENT: Atraumatic, normocephalic. Oral mucous membranes are pink and moist. Conjunctivae are pink. Neck: Supple. Trachea is midline. Cardiovascular: Heart rate is regular. Respiratory: Lung sounds are clear to auscultation bilaterally. Abdomen: Soft, obese and nontender. Bowel sounds are active. Extremities: There is a 1+ pretibial edema bilaterally. His left foot previous amputation site has a dry scabby eschar to where the left great toe had previously been. The right foot dressing is intact and not removed at this time. Pedal pulses are diminished bilaterally. Neurologic: He is awake, alert, and oriented, able to move around in the bed independently. There is peripheral neuropathy noted. LABORATORY AND X-RAY: None available today, however his right foot culture did come back with a Staphylococcus simulans. He also had a lower extremity MRI done this morning which showed severe osteomyelitis of the first tarsal with erosion of the distal third of the bone. ASSESSMENT AND PLAN: Mr. Horan is being treated for a right foot osteomyelitis. At this point, the plan is to take him to surgery this afternoon for an amputation based on the MRI report. There is a Staphylococcus simulans growing to the foot, so we will discontinue cefepime and Zyvox and start him on IV vancomycin per pharmacy dosing. These plans have been discussed with and recommended by Dr. Flower. COMORBIDITIES: For Mr. Horan include that he is obese with diabetes mellitus, and peripheral neuropathy. Dictated by DIVINA Sloan for Elmer Flower MD cc: Elmer Flower MD [facility]OSPITALSWhitley
--- NOTE | 2019-02-18 21:59 | OPERATIVE NOTE ---
PROCEDURE DATE: 02/18/2019 POSTOPERATIVE DIAGNOSES: 1. Right diabetic foot ulcer (but chronic). 2. Right osteomyelitis first metatarsal and great toe. 3. Right osteomyelitis 4th toe proximal phalanx. 4. Right foot abscess. POSTOPERATIVE DIAGNOSES: 1. Right diabetic foot ulcer (but chronic). 2. Right osteomyelitis first metatarsal and great toe. 3. Right osteomyelitis 4th toe proximal phalanx. 4. Right foot abscess. PROCEDURES: 1. Right foot irrigation and debridement of abscess. 2. Right 4th toe amputation through the metatarsal phalangeal joint. 3. Right first ray amputation through the first metatarsal. SURGEON: Dr. Nuno Lux. METER SUPERVISOR: DIVINA Figueroa, who was an integral part of the case, helping with all aspects of the case, helping increase our OR efficiency greatly. ANESTHESIA: General with LMA. TOURNIQUET TIME: Tourniquet was less than an hour. SPECIMENS/PATHOLOGY: Cultures were taken and sent. The toes were sent to Pathology. DISPOSITION: To the PACU hemodynamically stable. INDICATION FOR PROCEDURE: Mr. Horan is a 43-year-old male, who I have been taking care of for a while. Now we ended up having to amputate his left great toe a few weeks back. He came in over the weekend with a lot of cellulitis in the leg. We ended up getting an MRI which showed an abscess in the dorsal aspect of the foot, osteomyelitis the 4th toe proximal phalanx and the first metatarsal. I discussed with him about surgical intervention. He expressed understanding wished to proceed. DESCRIPTION OF PROCEDURE: Mr. Horan was identified in the preoperative holding area. The right foot was marked as correct surgical site. He was then wheeled to the operating room, placed supine on the operating table. All bony prominences well padded. He was induced under general anesthesia. LMA was placed. Tourniquet placed to the right thigh. Right lower extremity then prepped with Betadine solution and draped in the normal sterile fashion. Surgical pause was performed. We identified the correct patient, correct side, and the correct procedure. He was already on preoperative antibiotics for his cellulitis. After we took cultures, we gave antibiotics as well. No Esmarch was used and there was no exsanguination of the leg. We just put up the tourniquet. I started with the 4th toe and amputated it. There was a lot of purulence at the base. I amputated it through the MTP joint and sent it off to Pathology. There was a big abscess on the dorsal aspect of the foot that we were able to access through that wound I used a curette to really curette that whole area and get all those pockets of purulence open and drained all those out. I did make a dorsal incision more up on the midfoot area so that we could get through and through irrigation through that whole area. I excisionally debrided a lot of necrotic tissue using forceps, scalpel, rongeur and curette. We then came over to the great toe. Amputated the great toe. There was already metatarsal bone missing in the middle. So I took the toe off 1st and then found the proximal aspect of that metatarsal bone which did not look great, came a little proximal to that and then used a sagittal saw and was able to resect the bone in an area where it appeared to be healthy I then debrided all the necrotic tissue around that first ray, but did not get into the 2nd metatarsal. It did not look like there was any infection that tracked up the 2nd metatarsal either. When we were done, I would cut out the huge ulcer he had chronically on the plantar aspect of the foot and this left us with a very large open area. At this point, we then irrigated everything copiously with normal saline. After normal saline wash, then I used a Vashe and irrigated everything out with a Bausch; both the first ray amputation site and the 4th toe amputation site and abscess area in the dorsal aspect of the foot. Actually, I made a small stab incision so that we could get through and through flow through that whole area and we irrigated everything until it was nice and clear and things looked clean. At this point, then I packed the 4th toe amputation site with Kerlix soaked in Vashe and filled up that whole abscess cavity with a Vashe soaked Kerlix. We then did the same thing on the first ray site of all the exposed soft tissue. There was not a skin to flap over the remainder of the metatarsal. I used a Maxon 0 sutures, that are absorbable, to sew the soft tissue flap over the metatarsal bone. I then use nylon to close some of the skin over that metatarsal. I used nylon also then to closed the stab incision on the dorsal aspect of the foot. We then wrapped everything in 4 x 4, soft roll, ABDs and Miguelangel wrap. The tourniquet was let down. He had good capillary refill to the remaining 3 toes. He was then awakened from general anesthesia, moved to his own bed and taken to PACU stable condition. PLAN: Postoperatively, he will be nonweightbearing to the right lower extremity. We will get wound care involved tomorrow and more likely set him up for a wound VAC. cc: Nuno Lux MD
[2019-02-18] MEDS: MERREM 1 GM in NS 50 ML IV SCH (22:20)
[2019-02-19] MEDS: NORCO-7.5 PO PRN ×2 (02:15→11:53)
[2019-02-19] MEDS: MERREM 1 GM in NS 50 ML IV SCH ×2 (05:25→12:21)
[2019-02-19] MEDS: PRILOSEC PO SCH (06:05)
[2019-02-19] MEDS: VANCOMYCIN 1.4 GM in NS 250 ML IV SCH ×3 (06:05→17:02)
[2019-02-19 06:25] LABS: HEMATOCRIT 39.8 % (42.0-52.0); MCH 29.7 PG (27-31); MCHC 32.7 g/dL (33-37); MCV 90.9 FL (81-99); MPV 10.6 FL (7.4-10.4); RBC 4.38 XMIL (4.7-6.1); RDW 15.9 % (11.5-14.5); WBC 6.67 X1000 (4.8-10.8)
[2019-02-19 06:58] LABS: AGAP 13; BUN 10 mg/dL (8-22); CHLORIDE 101 mmol/L (98-107); COSMO 272; CREATININE 0.8 mg/dL (0.7-1.2); ESTIMATED GFR > 60; GLUCOSE 83 mg/dL (70-104); POTASSIUM 3.8 mmol/L (3.5-5.1); SODIUM 137 mmol/L (136-145); TCO2 23 mmol/L (25-35)
[2019-02-19] MEDS: HUMULIN R SUBQ SCH ×4 (07:33→21:43)
[2019-02-19] MEDS: GLUCOTROL PO SCH ×2 (08:55→21:41)
[2019-02-19] MEDS: PRINIVIL PO SCH (08:56)
[2019-02-19] MEDS: HUMULIN 70/30 SUBQ SCH ×2 (08:57→21:42)
[2019-02-19] MEDS: NS 1,000 ML IV SCH ×3 (08:58→23:40)
[2019-02-19] MEDS: LOVENOX SUBQ SCH (13:03)
--- NOTE | 2019-02-19 13:57 | ORTHOPAEDICS PROGRESS NOTE ---
DATE: 02/19/2019 SUBJECTIVE: Mr. Horan is lying in bed this morning. Pain seems controlled. OBJECTIVE: Right lower extremity exam, dressing is clean, dry, and intact to the toes. He does have good capillary refill to the 2nd, 3rd and 5th toes. Those are the remaining toes. ASSESSMENT: 1. Status post right irrigation debridement foot abscess. 2. Right 4th toe amputation through the MTP joint. 3. Right first ray amputation to the first metatarsal. PLAN: John has been consulted from a wound care standpoint. We will get him to apply a wound VAC today. We will continue to monitor his wounds over the next few days and get his response to IV antibiotics as well. I did discuss with him that this foot was a lot worse than the left foot was a few weeks ago so it is going to take a lot longer for this wound to heal in. cc: Nuno Lux MD
--- NOTE | 2019-02-19 16:33 | INFECTIOUS DISEASE PROGRESS NO ---
DATE: 02/19/2019 PRESENT ILLNESS: The patient is status post surgery on right foot gangrenous cellulitis and osteomyelitis. Staphylococci simulans was isolated from the patient's foot. The patient underwent extensive debridement of the foot and amputation of toes by Dr. Lux. MEDICATIONS: The patient is on vancomycin as a single agent. PHYSICAL EXAMINATION: Vital Signs: Temperature is 98 degrees, pulse 92, respirations 18, blood pressure 125/65. General: This is an obese, somewhat chronically ill-appearing male. He is in no acute distress. Head, eyes, ears, nose, and throat: Can hear my spoken words and see near objects. He does not have any white patches in his mouth. Neck: He does not have any neck pain when he moves his head. Lungs: Clear to auscultation. Cardiovascular: Heart rate is regular. Abdomen: Soft and nontender. Extremities: The patient has the VAC on the patient's right foot. Neurologic: The patient is alert. He can move his extremities. There is no tremor. LAB AND X-RAY: CBC shows a white count of 6670, hemoglobin 13, platelet count 196,000. Creatinine is 0.8. GFR is greater than 60.. ASSESSMENT AND PLAN: The patient has right foot osteomyelitis and gangrenous cellulitis, status post surgery. I agree with Dr. Lux that it would be best to send the patient home on IV antibiotics. I plan to have him be on vancomycin for 40 more days. COMORBIDITIES: The patient is obese. He is a diabetic and he has peripheral neuropathy. cc: Elmer Flower MD
--- NOTE | 2019-02-19 17:59 | PROGRESS NOTE ---
DATE: 02/19/2019 SUBJECTIVE: The patient is resting comfortably in bed. He has no complaints. OBJECTIVE: Vital Signs: Temperature 98.4, blood pressure 148/99, heart rate 88, respirations 18, O2 sats 100% on room air. General: This is a middle-aged male lying in bed in no acute distress. Heart: S1, S2 normal. Regular rate and rhythm. Lungs: Clear to auscultation bilaterally. Abdomen: Positive bowel sounds. Soft, nontender, nondistended. Extremities: No edema, no cyanosis. The right foot is wrapped in a dressing. LABS: Reviewed. ASSESSMENT AND PLAN: 1. Right foot osteomyelitis and gangrenous cellulitis status post debridement with amputation. Continue with antibiotic therapy as directed by Dr. Flower. Further management as per the orthopedic surgeon. 2. Diabetes mellitus type 2. Continue with sliding scale insulin. 3. DVT prophylaxis. Continue on Lovenox. cc: Nati Bloom MD MTDD
[2019-02-20] MEDS: NORCO-7.5 PO PRN ×2 (02:15→16:30)
[2019-02-20] MEDS: VANCOMYCIN 1.4 GM in NS 250 ML IV SCH (06:19)
[2019-02-20] MEDS: PRILOSEC PO SCH (06:19)
[2019-02-20 06:30] LABS: HEMATOCRIT 38.7 % (42.0-52.0); HEMOGLOBIN 12.6 g/dL (14.0-18.0); MCH 29.6 PG (27-31); MCHC 32.6 g/dL (33-37); MCV 90.8 FL (81-99); MPV 11.1 FL (7.4-10.4); RBC 4.26 XMIL (4.7-6.1); RDW 15.8 % (11.5-14.5); WBC 5.42 X1000 (4.8-10.8)
[2019-02-20 06:31] LABS: INR 0.95; PROTIME 13.4 Seconds (11.0-16.0)
--- NOTE | 2019-02-20 07:15 | ORTHOPAEDICS PROGRESS NOTE ---
DATE: 02/20/2019 SUBJECTIVE DATA: Mr. Horan is lying in bed. Overall, he feels better. OBJECTIVE DATA: Right Lower Extremity Examination: The dressing is clean, dry, and intact. He does have a wound VAC that is secure and to suction. There is some serosanguineous drainage. He does have better color overall to the foot. ASSESSMENT: 1. Status post right irrigation and debridement of foot abscess. 2. Right fourth toe amputation to the metatarsophalangeal joint. 3. Right first ray amputation through the first metatarsal. PLAN: We are going to continue the wound VAC today. We will plan to take that down tomorrow and assess the wound bed. If everything looks good, we will reapply the wound VAC and plan for him to go home with that. We have spoken with Dr. Flower. We are going to get him set up with IV antibiotics for home. It looks like we are going to do vancomycin for 40 days. The plan is for him to get his PICC line today. We will reassess the wound tomorrow and make sure we get the PICC line and IV antibiotics established. Then we will work on getting him home tomorrow if everything looks good. Dictated by DIVINA Figueroa for Nuno Lux MD cc: DIVINA Figueroa MD
[2019-02-20 07:25] LABS: AGAP 10; BUN 13 mg/dL (8-22); CALCIUM 7.9 mg/dL (8.8-10.2); CHLORIDE 101 mmol/L (98-107); COSMO 281; CREATININE 0.7 mg/dL (0.7-1.2); ESTIMATED GFR > 60; GLUCOSE 259 mg/dL (70-104); POTASSIUM 3.9 mmol/L (3.5-5.1); SODIUM 136 mmol/L (136-145); TCO2 25 mmol/L (25-35)
[2019-02-20] MEDS ORDERED: NS 250 ML ONE (07:58)
[2019-02-20] MEDS: HUMULIN R SUBQ SCH ×4 (08:06→21:57)
[2019-02-20] MEDS: GLUCOTROL PO SCH ×2 (08:45→21:57)
[2019-02-20] MEDS: PRINIVIL PO SCH (08:45)
[2019-02-20] MEDS: HUMULIN 70/30 SUBQ SCH ×2 (08:48→21:58)
[2019-02-20] MEDS: NS 1,000 ML IV SCH (11:10)
[2019-02-20] MEDS: LOVENOX SUBQ SCH (13:44)
--- NOTE | 2019-02-20 16:19 | PROGRESS NOTE ---
DATE: 02/20/2019 SUBJECTIVE: The patient is resting comfortably in bed. No acute events noted overnight. OBJECTIVE: Vital Signs: Temperature 97.8 degrees, blood pressure 134/66, heart rate 70, respirations 18, O2 saturation 99% on room air. General: This is a middle-aged male lying in bed in no acute distress. Heart: S1, S2 normal. Regular rate and rhythm. Lungs: Clear to auscultation bilaterally. No wheezing. No rales. No rhonchi. Abdomen: Positive bowel sounds. Soft, nontender, nondistended. Extremities: The right foot is wrapped in a clean dry dressing. No edema. No cyanosis. LABS: Reviewed. ASSESSMENT AND PLAN: 1. Right foot osteomyelitis and gangrenous cellulitis, status post debridement and amputation of the fourth toe and first ray through the first metatarsal. Management as per Orthopedic Surgery. Continue with intravenous antibiotics as directed by Dr. Flower. 2. Uncontrolled diabetes mellitus type 2. Continue on glipizide and sliding scale insulin. 3. Deep vein thrombosis prophylaxis. Continue on Lovenox. cc: Nati Bloom MD
[2019-02-20] MEDS: VANCOMYCIN 1.75 GM in NS 500 ML IV SCH (19:34)
[2019-02-21 03:57] VITALS: BP 164/76
[2019-02-21 06:05] LABS: HEMATOCRIT 38.1 % (42.0-52.0); HEMOGLOBIN 12.4 g/dL (14.0-18.0); MCH 29.4 PG (27-31); MCHC 32.5 g/dL (33-37); MCV 90.3 FL (81-99); MPV 10.2 FL (7.4-10.4); RBC 4.22 XMIL (4.7-6.1); RDW 15.2 % (11.5-14.5); WBC 6.08 X1000 (4.8-10.8)
[2019-02-21] MEDS: PRILOSEC PO SCH (06:17)
[2019-02-21 06:34] LABS: AGAP 9; BUN 11 mg/dL (8-22); CALCIUM 8.7 mg/dL (8.8-10.2); CHLORIDE 101 mmol/L (98-107); COSMO 272; CREATININE 0.7 mg/dL (0.7-1.2); ESTIMATED GFR > 60; GLUCOSE 114 mg/dL (70-104); POTASSIUM 3.7 mmol/L (3.5-5.1); SODIUM 136 mmol/L (136-145); TCO2 26 mmol/L (25-35)
[2019-02-21] MEDS: HUMULIN R SUBQ SCH ×3 (07:03→16:34)
[2019-02-21] MEDS: PRINIVIL PO SCH ×2 (07:41→10:26)
[2019-02-21] MEDS: GLUCOTROL PO SCH ×2 (07:41→10:26)
[2019-02-21] MEDS: VANCOMYCIN 1.75 GM in NS 500 ML IV SCH (08:13)
[2019-02-21] MEDS: HUMULIN 70/30 SUBQ SCH (10:26)
--- NOTE | 2019-02-21 15:05 | INFECTIOUS DISEASE PROGRESS NO ---
DATE: 02/21/2019 PRESENT ILLNESS: The patient is status post surgery on his Staphylococcal simulans right foot gangrenous cellulitis and osteomyelitis. MEDICATIONS: The patient is on vancomycin. PHYSICAL EXAMINATION: Vital Signs: Temperature is 98 degrees, pulse 68, respirations 18, blood pressure 170/70. General: This is an obese, middle-aged male. He is in no acute distress. Head/eyes/ears/nose/throat: He can hear my spoken words and see near objects. He does not have any white coating on his tongue. Neck: He does not have any pain in his neck when he moves his head or neck. Lungs: Clear to auscultation. Cardiovascular: Heart rate is regular. Abdomen: Soft and nontender. Extremities: The patient has a large dressing around the right foot. A VAC is in place. The patient has a PICC in his arm. The PICC site is not erythematous or swollen. Neurologic: Patient is alert. He can move his extremities. He does not have a tremor. LAB AND X-RAY: There is no recent x-ray. The patient's lab work shows a CBC with a white count of 6080, hemoglobin 12.4, and platelet count 219,000, creatinine is 0.7, GFR is greater than 60. ASSESSMENT AND PLAN: Patient has Staph simulans right foot gangrenous cellulitis and osteomyelitis. The plan now is to treat with vancomycin for 40 more days to complete a 6-week treatment course. The patient will be doing one of his doses of vancomycin at home and one at the outpatient clinic. The patient will have an appointment at my office approximately midway through the treatment and then at the end of treatment. COMORBIDITIES: The patient is obese and he is a diabetic. He also has peripheral neuropathy. cc: Elmer Flower MD
[2019-02-21] MEDS: LOVENOX SUBQ SCH (16:20)
--- NOTE | 2019-02-21 16:32 | ORTHOPAEDICS PROGRESS NOTE ---
DATE: 02/21/2019 NO DICTATION Dictated by DIVINA Figueroa for Nuno Lux MD cc: DIVINA Figueroa MD
--- NOTE | 2019-02-21 16:36 | ORTHOPAEDICS PROGRESS NOTE ---
DATE: 02/21/2019 SUBJECTIVE: Mr. Horan is laying in bed. He says he is feeling much better. He got his PICC line yesterday and is ready for discharge. OBJECTIVE DATA: Right lower extremity exam: We took that wound VAC down today. He does have a lot of good granulation tissue to those wound beds. He did have a small plantar wound that had developed as well. There is no erythema and a little bit of serosanguineous drainage. The overall color of the foot looks good. ASSESSMENT: 1. Status post right irrigation debridement of foot abscess. 2. Right 4th toe amputated to metatarsophalangeal joint. 3. Right first ray amputation to the first metatarsal. PLAN: We are going to put his wound VAC back on. We are going to pack that plantar wound with Drawtex. He has got his PICC line and his IV antibiotics set up for home. We are good with him being discharged whenever the medical team is ready. He will be nonweightbearing to this right lower side. I did send an order over to the [facility] to get him established there. We are planning on him getting his wound VAC changed Monday. He is going to get that VAC changed 2 times a week and it will be on negative pressure at 125 continuous. We are going to see him in 1 office 1 week at the office. If there is any questions or concerns, he knows he can call the office. Dictated by DIVINA Figueroa for Nuno Lux MD cc: DIVINA Figueroa MD
--- NOTE | 2019-02-22 14:20 | DISCHARGE SUMMARY ---
ADMISSION DATE: 02/16/2019 DISCHARGE DATE: 02/21/2019 FINAL DISCHARGE DIAGNOSES: 1. Right foot osteomyelitis with gangrenous cellulitis status post debridement and amputation of the 4th toe and 1st ray through the 1st metatarsal. 2. Uncontrolled diabetes mellitus type 2. 3. Morbid obesity. 4. Hypertension. CONSULTATIONS REQUESTED DURING THIS HOSPITAL STAY: 1. Orthopedic consultation with Dr. Nuno Lux. 2. Infectious Disease consultation with Dr. Elmer Flower. IMAGIN. A foot x-ray performed on 02/16/2019 that revealed cellulitis and soft tissue gas at the dorsum of the right foot with extensive erosion of the 1st and 2nd metatarsals. 2. A chest x-ray performed on 02/16/2019 that revealed no acute pathology. 3. MRI of the lower extremity performed on 02/18 that revealed severe osteomyelitis of the 1st tarsal with erosion of the distal 3rd of the bone. Severe soft tissue swelling and gas over the forefoot penetrating ulcer at the plantar surface of the 1st and 2nd metatarsal. PROCEDURES: 1. Right foot irrigation and debridement of abscess. 2. Right 4th toe amputation through the metatarsophalangeal joint. 3. Right 1st ray amputation through the 1st metatarsal. HOSPITAL COURSE: Mr. Horan is a 43-year-old male with a history of uncontrolled diabetes and hypertension who presented to the ER with a chief complaint of worsening pain and swelling of his foot. The patient had a foot x-ray done in the ER that revealed worsening cellulitis and soft tissue gas at the dorsum of the foot as well as an erosion involving the 4th and 2nd metatarsals. In light of these findings, the patient was admitted to the hospitalist service. Blood cultures were obtained and the patient was started on broad-spectrum antibiotics. ID and Orthopedic Surgery were consulted. The patient then underwent an MRI of the right foot which confirmed osteomyelitis. The patient was taken to the OR on 02/18/2019 at which time the right foot was irrigated and debrided, and the patient underwent an amputation of the 4th toe and the 1st ray amputation to the 1st metatarsal. Cultures were done during this procedure that ultimately grew out Staphylococcus Simulans. The patient was treated with vancomycin while hospitalized in light of these culture findings. The patient improved clinically with treatment, and a decision was made the patient was stable enough to be discharged home with IV antibiotics. A PICC line was placed and arrangements were made for the patient to continue with IV antibiotic therapy at [place]. The patient was unable to afford to have vancomycin infused at home and so the patient's antibiotic was switched to daptomycin 750 mg IV daily to be administered at [place]. The patient will also be following up at the [facility]. The patient will also have a BMP, CBC, LFTs, and CK done each week and the results will be forwarded to Dr.Leroy Flower. DISCHARGE MEDICATIONS: 1. Daptomycin 750 mg IV daily. 2. [place] 7.5/325 one tab oral every 6 hours p.r.n. 3. Glipizide 5 mg oral twice a day. 4. Lisinopril 5 mg oral daily. 5. Lispro 30 units subcutaneous at bedtime. 6. Albuterol nebs and p.r.n. for shortness of breath. DISCHARGE DIET: 1800 ADA diet. ACTIVITY: As tolerated. FOLLOWUP INSTRUCTIONS: The patient will need to follow up with Dr. Lux on 02/26/2019 at 10:00 in the morning. The patient will need to follow up with Dr. Elmer Flower on 03/13/2019 at 8:30 in the morning. The patient is scheduled to be at the [facility] at [place] on 02/25/2019 at 3:30 in the afternoon. cc: MD FANY Murray
== END 2019-02-21 19:10 | disposition home or self-care (01) | DRG 617 ==
LOC: ED 10:53 → 4N 13:36 → SUATTDRO 13:36
PROVIDERS: ATTEND Internal Medicine
CPT/HCPCS: 36569; 71010; 71045; 73630; 73721; 76000; 80048; 80053; 80202; 81001; 82550; 82607; 82746; 82948; 83036; 83605; 83735; 84439; 84443; 84484; 85025; 85027; 85610; 85730; 87040; 87070; 87075; 87077; 87186; 87205; 88305; 94640; 94760; 94761; 94799; 96365; 96375; 99285; A9270; J0692; J1650; J2020; J2185; J2270; J2405; J3010; J3370; J7030; J7040; J7050; S0077; XXXXX